=== PATIENT | male | born 1945 | race Caucasian/White ===

== ENCOUNTER 2018-02-13 06:34 | Observation (INO) | payer OTHER, MEDICAID ==
[2018-02-13] MEDS ORDERED: ONDANSETRON 4 MG INJ IV (10:30)
[2018-02-13] MEDS ORDERED: PROPOFOL 20 ML (10:30)
[2018-02-13] MEDS ORDERED: DIPHENHYDRAMINE 50 MG INJ IV (10:30)
[2018-02-13] MEDS ORDERED: LIDOCAINE 2% (SDV) 5 ML INJ (10:30)
[2018-02-13] MEDS ORDERED: FENTAnyl 50 MCG/ML VIAL IV (10:30)
[2018-02-13] MEDS ORDERED: MEPERIDINE 25 MG INJ IV (10:30)
[2018-02-13] MEDS ORDERED: HYDROmorphONE 1 MG/5 ML IV SYRINGE IV (10:30)
[2018-02-13] MEDS ORDERED: PROCHLORPERAZINE 10 MG INJ IV (10:30)
[2018-02-13] MEDS ORDERED: CEFAZOLIN 1 GM INJ ×2 (10:48)
[2018-02-13] MEDS ORDERED: SUCCINYLCHOLINE CHLORIDE 100 MG/5 ML SYG IV (10:48)
[2018-02-13] MEDS ORDERED: DEXAMETHASONE 4 MG/ML 1 ML INJ ×2 (10:49→11:07)
[2018-02-13] MEDS ORDERED: ONDANSETRON 4 MG INJ ×2 (10:49→11:07)
[2018-02-13] MEDS ORDERED: FENTAnyl 50 MCG/ML VIAL (11:00)
[2018-02-13] MEDS ORDERED: EPHEDrine SULFATE 50 MG/5 ML SYG (11:07)
[2018-02-13] MEDS ORDERED: FAMOTIDINE 20 MG INJ (11:07)
[2018-02-13] MEDS ORDERED: ROCURONIUM 50 MG INJ (11:08)
[2018-02-13] MEDS ORDERED: ACETAMINOPHEN 1000MG/100ML IV 100 ML (11:48)
[2018-02-13] MEDS ORDERED: SUGAMMADEX SODIUM 200 MG/2 ML VIAL IV (11:54)
[2018-02-13] MEDS ORDERED: morphine 2 MG INJ IV (14:00)
[2018-02-13] MEDS ORDERED: HYDROCODONE/APAP (5/325) TAB PO (14:00)
[2018-02-13] MEDS: DEXTROSE 5%-0.45% NACL 1,000 ML IV (14:07)
[2018-02-14 05:30] LABS: ADD MAN DIFF? NO; BASOPHILS % 0.1 % (0.0-2.0); HEMATOCRIT 39.5 % (42.0-52.0); HEMOGLOBIN 13.1 g/dl (14.0-18.0); LYMPHOCYTES # 1.3 10^3/ul (0.8-2.9); LYMPHOCYTES % 8.1 % (15.0-51.0); MEAN CORPUSCULAR HEMOGLOBIN 30.3 pg (29.0-33.0); MEAN CORPUSCULAR HGB CONC 33.2 g/dl (32.0-37.0); MEAN CORPUSCULAR VOLUME 91.2 fl (82.0-101.0); MONOCYTES % 6.2 % (0.0-11.0); NEUTROPHIL # 13.6 10^3/ul (1.6-7.5); NEUTROPHILS % 85.2 % (39.0-77.0); PLATELET COUNT 196 10^3/UL (140-415); RED BLOOD COUNT 4.33 10^6/ul (4.70-6.10); RED CELL DISTRIBUTION WIDTH 12.8 % (11.5-14.5)
[2018-02-14 07:11] LABS: ANION GAP 11 (8-16); BLOOD UREA NITROGEN 23 mg/dl (7-20); CALCIUM 9.5 mg/dl (8.4-10.2); CARBON DIOXIDE 29 mmol/L (21-31); CHLORIDE 104 mmol/L (97-110); CREATININE 1.43 mg/dl (0.61-1.24); GLUCOSE 156 mg/dl (70-220); POTASSIUM 4.3 mmol/L (3.5-5.1); SODIUM 140 mmol/L (135-144)
[2018-02-14] MEDS: DEXTROSE 5%-0.45% NACL 1,000 ML IV (08:21)
[2018-02-14] MEDS: ASPIRIN 81 MG TAB PO (08:53)
[2018-02-14] MEDS: METOPROLOL (XL) 25 MG TAB PO (08:53)
[2018-02-14] MEDS: CIPROFLOXACIN 500 MG TAB PO (08:53)
[2018-02-14] MEDS: FEBUXOSTAT 40 MG TABLET PO (08:56)
[2018-02-14] MEDS: ATORVASTATIN 10 MG TAB PO (08:56)
== END 2018-02-14 12:30 | disposition home or self-care (01) ==
LOC: SDS 06:34 → MS1 12:25
DX: C61 Malignant neoplasm of prostate (principal); N41.1 Chronic prostatitis; I25.10 Atherosclerotic heart disease of native coronary artery without angina pectoris; Z95.1 Presence of aortocoronary bypass graft; I12.9 Hypertensive chronic kidney disease with stage 1 through stage 4 chronic kidney disease, or unspecified chronic kidney disease; N18.3 Chronic kidney disease, stage 3 (moderate); M10.9 Gout, unspecified; E78.5 Hyperlipidemia, unspecified
CPT/HCPCS: 52601; 80048; 85025; 88305